=== PATIENT | male | born 1965 | race Two or more races ===

== ENCOUNTER 2017-07-15 14:20 | Inpatient (IN) | payer OTHER ==
[~2017-07-15] VITALS: Ht 182.9 cm; Wt 81.6 kg
[2017-08-14] MEDS ORDERED: GABAPENTIN800 MG PO (12:23)
[2017-08-26] MEDS ORDERED: AMBIEN5 MG PO (05:14)
[2017-08-26] MEDS ORDERED: MIRALAX17 GM PO (05:14)
[2017-08-26] MEDS ORDERED: ZYRTEC10 M3 PO (05:14)
[2017-08-26] MEDS ORDERED: NEURONTIN800 MG PO (05:14)
[2017-08-26] MEDS ORDERED: ULTRACET PO (05:14)
== END 2017-08-26 09:26 | disposition home or self-care (01) | DRG 354 ==
LOC: SURH 08-22 06:20 → O/R 08-22 06:20 → SURH 08-22 07:00 → SURG 08-24 07:50
PROVIDERS: Surgery
PROC: 0WJG4ZZ Inspection of Peritoneal Cavity, Percutaneous Endoscopic Approach (ICD-10-PCS; 2017-08-22)
PROC: 0JX80ZZ Transfer Abdomen Subcutaneous Tissue and Fascia, Open Approach (ICD-10-PCS; 2017-08-22)
PROC: 0WUF4JZ Supplement Abdominal Wall with Synthetic Substitute, Percutaneous Endoscopic Approach (ICD-10-PCS; principal; 2017-08-22 07:00)
DX: K43.0 Incisional hernia with obstruction, without gangrene (principal); J95.89 Other postprocedural complications and disorders of respiratory system, not elsewhere classified; J98.11 Atelectasis; J45.998 Other asthma

== ENCOUNTER 2017-08-13 06:44 | Outpatient (CLI) | payer OTHER ==
[2017-08-14] MEDS ORDERED: GABAPENTIN800 MG PO (12:23)
== END 2017-08-13 06:47 | disposition home or self-care (01) ==
LOC: RAD 06:44
DX: R10.9 Unspecified abdominal pain (principal); K43.2 Incisional hernia without obstruction or gangrene

== ENCOUNTER 2017-10-18 13:51 | Outpatient (CLI) | payer OTHER ==
[~2017-10-18 13:51] MED LIST: AMBIEN5 MG PO; GABAPENTIN800 MG PO; MIRALAX17 GM PO; NEURONTIN800 MG PO; ULTRACET PO; ZYRTEC10 M3 PO
== END 2017-10-18 14:51 | disposition home or self-care (01) ==
LOC: RAD 501 13:51
DX: M54.5 Low back pain (principal); M54.16 Radiculopathy, lumbar region

== ENCOUNTER 2017-11-28 11:22 | Outpatient (CLI) | payer OTHER | END 2017-11-28 12:57 | disposition home or self-care (01) | LOC: RAD 501 11:22 | DX: M54.5 Low back pain (principal) ==

== ENCOUNTER 2024-12-28 05:43 | Inpatient (IN) | payer OTHER ==
[~2024-12-28] VITALS: Ht 182.9 cm; Wt 77.1 kg
--- NOTE | 2024-12-28 06:14 | NUR ---
PACIENTE ALERTA Y ORIENTADO X3 QUIEN REFIERE VENIR POR SANGR[place]O RECTAL CON REFERIDO DE DRA. BRIAN PEREZ GASTROENTEROLOGA.
[2024-12-28] MEDS ORDERED: HYOSCYAMINE SULFATE 0.125 MG TAB.SUBL SL ONE ×2 (07:30→07:45)
[2024-12-28] MEDS ORDERED: ONDANSETRON HCL 2 MG/ML VIAL IM ONE (07:30)
[2024-12-28] MEDS ORDERED: PANTOPRAZOLE SODIUM 40 MG TABLET.DR PO ONE (07:30)
[2024-12-28] MEDS ORDERED: PANTOPRAZOLE SODIUM 40 MG/VIAL VIAL IV PUSH ONE (07:45)
[2024-12-28] MEDS ORDERED: PIPERACILLIN/TAZOBACTAM SODIUM 3.375 GM VIAL IV ONE ×2 (07:45→08:11)
[2024-12-28] MEDS ORDERED: ONDANSETRON HCL 2 MG/ML VIAL IV ONE (07:45)
[2024-12-28] MEDS ORDERED: 0.9 % SODIUM CHLORIDE 1,000 ML IV ONE (07:45)
[2024-12-28] MEDS ORDERED: KETOROLAC TROMETHAMINE 15 MG VIAL IV ONE (07:45)
[2024-12-28] MEDS ORDERED: KETOROLAC TROMETHAMINE 30 MG VIAL ONE (08:10)
[2024-12-28] MEDS ORDERED: HYOSCYAMINE SULFATE 0.125 MG TAB.SUBL ONE (08:11)
[2024-12-28] MEDS ORDERED: ONDANSETRON HCL 2 MG/ML VIAL ONE ×2 (08:11→08:12)
[2024-12-28 08:39] LABS: BASO % 0.1 % (0.1-1.2); EOS # 0.00 (0.04-0.54); EOS % 0.0 % (0.7-7.0); LYMPH # 0.56 (1.18-3.74); LYMPH % 4.3 % (19.3-53.1); MEAN PLATELET VOLUME 10.50 fl (9.4-12.4); MONO # 0.20 (0.24-0.82); MONO % 1.5 % (4.7-12.5); NEUT # 12.16 (1.56-6.13); NEUT % 93.6 % (34.0-71.1); RED CELL DISTRIBUTION WIDTH 12.9 % (11.6-14.4)
--- NOTE | 2024-12-28 08:41 | NUR ---
PACIENTE ALERTA Y ORIENTADO EN [place] EN MAGDALENO. EL MISMO SE EDUCA SOBRE TRATAMIENTOS A SEGUIR. SE LE REALIZA MARY DE MUESTRAS Y SE ADMINISTRAN MEDICAMENTOS CON MEDIDAS ASEPTICAS. EL MISMO REFIERE ENTENDER EDUCACION. PACIENTE PERMANECE EN MAGDALENO EN ESPERA DE CT. SE LE HACE ENTREGA DE ENVACES PARA MARY DE MUESTRA DE U/A Y FECAL
[2024-12-28 09:05] LABS: ALT/SGPT 19.0 U/L (12-78); AST/SGOT 12.0 U/L (15-37); BILIRUBIN TOTAL 0.81 mg/dL (0.3-1.2); BUN CREA RATIO 19.0 (7.0-25.0); CREATININE SERUM 1.16 mg/dL (0.70-1.30); GFR 64.01; GLOBULINA 3.3 G/DL (2.4-3.5); GLUCOSE FASTING 113.0 mg/dL (65-100); OSMOLALITY SERUM 289.0 MOSM/KG (275-295)
[2024-12-28 09:31] LABS: URINE APPEARANCE Clear; URINE BILIRRUBIN Negative (NEGATIVE); URINE BLOOD Negative; URINE COLOR Dark Yellow; URINE GLUCOSE Negative (NEGATIVE); URINE KETONE Trace (NEGATIVE); URINE LEUKOCYTE Negative; URINE NITRATE Negative; URINE PROTEIN Trace (NEGATIVE); URINE UROBILINOGEN 0.2 E.U./dl
[2024-12-28 09:33] LABS: URINE BACTERIA 31.1 uL (0.0-1933); URINE CAST 4.54 uL (0.0-1.40); URINE EPITHELIAL CELLS 10.6 uL (0.0-38.8); URINE RBC 13.1 uL (0.0-20.8); URINE WBC 3.3 uL (0.0-23.2)
[2024-12-28 09:45] LABS: URINE MUCUS HEAVY
[2024-12-28] MEDS ORDERED: BARIUM SULFATE 450 ML ORAL.SUSP PO ONE (10:04)
[2024-12-28] MEDS ORDERED: DIPHENHYDRAMINE HCL 50 MG/ML VIAL 1ML ONE (13:12)
[2024-12-28] MEDS ORDERED: METHYLPREDNISOLONE SOD SUCC 125 MG VIAL ONE (13:12)
[2024-12-28] MEDS ORDERED: DIPHENHYDRAMINE HCL 50 MG/ML VIAL 1ML IV ONE (13:15)
[2024-12-28] MEDS ORDERED: METHYLPREDNISOLONE SOD SUCC 125 MG VIAL IV ONE (13:15)
[2024-12-28 16:53] VITALS: BP 118/68
[2024-12-28] MEDS ORDERED: CIPROFLOXACIN IN 5 % DEXTROSE 200 ML IV SCH (17:05)
[2024-12-28] MEDS ORDERED: ONDANSETRON HCL 4 MG in 0.9 % SODIUM CHLORIDE 50 ML IV PRN (17:15)
[2024-12-28] MEDS ORDERED: PANTOPRAZOLE SODIUM 80 MG in 0.9 % SODIUM CHLORIDE 100 ML IV SCH (17:15)
[2024-12-28] MEDS ORDERED: MORPHINE SULFATE 2 MG/ML SYRINGE IV PRN (17:15)
[2024-12-28] MEDS ORDERED: ZOLPIDEM TARTRATE 5 MG TABLET PO PRN (17:15)
[2024-12-28] MEDS ORDERED: 0.9 % SODIUM CHLORIDE 1,000 ML IV SCH (17:15)
[2024-12-28] MEDS ORDERED: ACETAMINOPHEN 325 MG TABLET PO PRN (17:15)
[2024-12-28] MEDS ORDERED: CIPROFLOXACIN IN 5 % DEXTROSE 400 MG/200 ML PIGGYBAG IV ONE (17:26)
[2024-12-28 18:25] LABS: INR 1.15
[2024-12-29 03:54] LABS: BASO % 0.1 % (0.1-1.2); EOS # 0.00 (0.04-0.54); EOS % 0.0 % (0.7-7.0); LYMPH # 0.72 (1.18-3.74); LYMPH % 4.7 % (19.3-53.1); MEAN PLATELET VOLUME 10.70 fl (9.4-12.4); MONO # 0.59 (0.24-0.82); MONO % 3.8 % (4.7-12.5); NEUT # 13.90 (1.56-6.13); NEUT % 90.3 % (34.0-71.1); RED CELL DISTRIBUTION WIDTH 13.3 % (11.6-14.4)
[2024-12-29 08:28] VITALS: BP 145/69; O2SAT 99
[2024-12-29 16:00] VITALS: BP 126/71; O2SAT 95
[2024-12-30 00:57] VITALS: BP 131/74; O2SAT 97
[2024-12-30 08:32] VITALS: BP 124/72; O2SAT 97
[2024-12-30] MEDS ORDERED: PANTOPRAZOLE SODIUM 40 MG/VIAL VIAL IV PUSH SCH (09:45)
[2024-12-30 11:35] LABS: BASO % 0.2 % (0.1-1.2); EOS # 0.02 (0.04-0.54); EOS % 0.2 % (0.7-7.0); LYMPH # 2.76 (1.18-3.74); LYMPH % 33.1 % (19.3-53.1); MEAN PLATELET VOLUME 11.00 fl (9.4-12.4); MONO # 0.88 (0.24-0.82); MONO % 10.6 % (4.7-12.5); NEUT # 4.64 (1.56-6.13); NEUT % 55.7 % (34.0-71.1); RED CELL DISTRIBUTION WIDTH 13.5 % (11.6-14.4)
[2024-12-30 12:00] LABS: ALT/SGPT 22.0 U/L (12-78); AST/SGOT 22.0 U/L (15-37); BILIRUBIN TOTAL 0.72 mg/dL (0.3-1.2); BUN CREA RATIO 15.0 (7.0-25.0); CREATININE SERUM 1.06 mg/dL (0.70-1.30); GFR 71.02; GLOBULINA 2.6 G/DL (2.4-3.5); GLUCOSE FASTING 82.0 mg/dL (65-100); OSMOLALITY SERUM 289.0 MOSM/KG (275-295)
[2024-12-30 17:35] VITALS: BP 143/70; O2SAT 98
[2024-12-31 00:20] VITALS: BP 124/71; O2SAT 96
[2024-12-31 08:33] LABS: BASO % 0.3 % (0.1-1.2); EOS # 0.06 (0.04-0.54); EOS % 0.9 % (0.7-7.0); LYMPH # 1.39 (1.18-3.74); LYMPH % 20.9 % (19.3-53.1); MEAN PLATELET VOLUME 11.40 fl (9.4-12.4); MONO # 0.76 (0.24-0.82); MONO % 11.4 % (4.7-12.5); NEUT # 4.40 (1.56-6.13); NEUT % 66.0 % (34.0-71.1); RED CELL DISTRIBUTION WIDTH 12.8 % (11.6-14.4)
[2024-12-31 08:52] LABS: BUN CREA RATIO 12.0 (7.0-25.0); CREATININE SERUM 1.06 mg/dL (0.70-1.30); GFR 71.02; GLUCOSE FASTING 72.0 mg/dL (65-100); OSMOLALITY SERUM 285.0 MOSM/KG (275-295)
[2024-12-31 11:41] VITALS: BP 131/79; O2SAT 99
== END 2024-12-31 14:14 | disposition home or self-care (01) | DRG 378 ==
LOC: ER 05:43 → SEC-K 17:30 → SURG 17:30
PROVIDERS: General Practice; Internal Medicine Infectious Disease; ADMIT Internal Medicine; ATTEND Internal Medicine
PROC: BW21YZZ Computerized Tomography (CT Scan) of Abdomen and Pelvis using Other Contrast (ICD-10-PCS; principal; 2024-12-28)
DX: K62.5 Hemorrhage of anus and rectum (principal); K55.9 Vascular disorder of intestine, unspecified; K57.90 Diverticulosis of intestine, part unspecified, without perforation or abscess without bleeding; R10.32 Left lower quadrant pain; Z91.041 Radiographic dye allergy status; Z91.013 Allergy to seafood